=== PATIENT | male | born 1970 | race Caucasian/White ===

== ENCOUNTER 2021-05-27 16:28 | Inpatient (IN) ==
[2021-05-27] MEDS ORDERED: Isovue-370 500 ML BOTTLE IVP ONE (17:24)
[2021-05-27] MEDS ORDERED: 0.9 % Sodium Chloride 1,000 ML IVC ONE (17:24)
[2021-05-27 17:34] LABS: Basophils % 0.1 %; Eosinophils % 0.1 %; Hematocrit 40.1 % (37.5-50.1); Hemoglobin 14.1 g/dL (12.9-16.9); Immature Granulocytes % 0.5 % (0-4); Lymphocytes # 1.9 K/mcL (0.6-4.6); Lymphocytes % 11.9 %; Mean Corpuscular HGB Conc 35.2 g/dL (31.6-35.5); Mean Corpuscular Hemoglobin 29.6 pg (28.0-33.3); Mean Corpuscular Volume 84.2 fL (83.0-100.0); Mean Platelet Volume 8.6 fL (9.4-12.4); Monocytes # 1.5 K/mcL (0.0-1.3); Monocytes % 9.5 %; Neutrophils # 12.1 K/mcL (1.6-8.9); Platelet Count 371 K/mcL (140-400); Red Blood Count 4.76 M/mcL (4.19-5.50); Red Cell Distribution Width 13.1 % (11.5-14.5); Segmented Neutrophils % 77.9 %; White Blood Count 15.5 K/mcL (4.3-11.1)
[2021-05-27 17:54] LABS: Alanine Aminotransferase 11 Units/L (7-52); Albumin 3.6 g/dL (3.5-5.7); Albumin/Globulin Ratio 1.6 (1.1-2.2); Alkaline Phosphatase 55 Units/L (34-104); Aspartate Amino Transferase 13 Units/L (13-39); BUN/Creatinine Ratio 42 (6-26); Bilirubin,Direct 0.2 mg/dL (0.0-0.2); Bilirubin,Indirect 0.9 mg/dL (0.0-1.0); Bilirubin,Total 1.1 mg/dL (0.3-1.0); Blood Urea Nitrogen 19 mg/dL (6-20); Calcium 7.4 mg/dL (8.6-10.3); Carbon Dioxide 23 mEq/L (23-29); Chloride 105 mEq/L (98-107); Globulin 2.3 g/dL (2.4-3.5); Glucose 97 mg/dL (70-105); Lipase 9 Units/L (11-82); Magnesium 1.6 mg/dL (1.6-2.6); Osmolality,Calculated 290 (280-300); Potassium 3.4 mEq/L (3.5-5.1); Sodium 139 mEq/L (136-145); Total Protein 5.9 g/dL (6.4-8.9); eGFR For African Americans > 60 (> 60); eGFR For Non-African Americans > 60 (> 60)
[2021-05-27 19:36] LABS: Bilirubin,Urine Negative (Negative); Blood,Urine Negative (Negative); Clarity,Urine Clear (Clear); Color,Urine Light-Yellow (Yellow); Glucose,Urine (UA) Normal (Normal); Ketones,Urine Negative (Negative); Leukocyte Esterase,Urine Large (Negative); Mucus,Urine Few per lpf (None-Few); Nitrite,Urine Negative (Negative); Protein,Urine Trace mg/dL (Neg-Trace); Specific Gravity,Urine > 1.030 (1.010-1.025); Squamous Epithelial Cell,Urine Few per hpf (None-Few); Urobilinogen,Urine Normal (Normal); WBC,Urine TNTC per hpf (0-3)
[2021-05-27] MEDS ORDERED: Azithromycin 250 MG TABLET PO ONE (19:37)
[2021-05-27] MEDS ORDERED: cefTRIAXone 1,000 MG in Water for inj. (sterile) 10 ML IVP ONE (19:37)
[2021-05-27] MEDS ORDERED: Clindamycin 600 MG/50 ML 600 MG/50 ML IV.SOLN IVPB ONE (21:50)
[2021-05-27] MEDS ORDERED: Naloxone 0.4 MG/ML INJ IVP PRN (22:47)
[2021-05-27] MEDS ORDERED: Acetaminophen 325 MG TABLET PO PRN (22:47)
[2021-05-27] MEDS ORDERED: Melatonin 3 MG TABLET PO PRN (22:47)
[2021-05-27] MEDS ORDERED: Ondansetron 4 MG/2 ML VIAL IVP PRN (22:47)
[2021-05-27 22:55] LABS: Influenza A PCR Negative (Negative); Influenza B PCR Negative (Negative); Resp. Syncytial Virus PCR Negative (Negative)
[2021-05-27 22:56] LABS: SARS-CoV-2 by PCR (In House) Negative (Negative)
[2021-05-28] MEDS ORDERED: 0.9 % Sodium Chloride 1,000 ML IVC SCH (02:15)
[2021-05-28 02:25] LABS: Basophils % 0.1 %; Eosinophils % 0.1 %; Hematocrit 34.5 % (37.5-50.1); Immature Granulocytes % 0.3 % (0-4); Lymphocytes # 1.4 K/mcL (0.6-4.6); Lymphocytes % 10.9 %; Mean Corpuscular HGB Conc 33.3 g/dL (31.6-35.5); Mean Corpuscular Hemoglobin 28.7 pg (28.0-33.3); Mean Platelet Volume 8.5 fL (9.4-12.4); Monocytes # 1.2 K/mcL (0.0-1.3); Monocytes % 9.5 %; Neutrophils # 9.9 K/mcL (1.6-8.9); Platelet Count 279 K/mcL (140-400); Red Blood Count 4.01 M/mcL (4.19-5.50); Red Cell Distribution Width 13.1 % (11.5-14.5); Segmented Neutrophils % 79.1 %; White Blood Count 12.5 K/mcL (4.3-11.1)
[2021-05-28 02:27] LABS: Hemoglobin 11.5 g/dL (12.9-16.9)
[2021-05-28 02:41] LABS: Lactate Dehydrogenase 118 Units/L (140-271); Total Protein 5.9 g/dL (6.4-8.9)
[2021-05-28 02:42] LABS: BUN/Creatinine Ratio 26 (6-26); Blood Urea Nitrogen 18 mg/dL (6-20); Calcium 8.3 mg/dL (8.6-10.3); Carbon Dioxide 27 mEq/L (23-29); Chloride 101 mEq/L (98-107); Glucose 159 mg/dL (70-105); Magnesium 1.9 mg/dL (1.6-2.6); Osmolality,Calculated 289 (280-300); Phosphorous 3.3 mg/dL (2.7-4.5); Potassium 3.9 mEq/L (3.5-5.1); Sodium 137 mEq/L (136-145); eGFR For African Americans > 60 (> 60); eGFR For Non-African Americans > 60 (> 60)
[2021-05-28] MEDS: Vancomycin 1,250 MG/262.5 ML IV.SOLN IVPB SCH ×2 (02:45→15:20)
[2021-05-28] MEDS: Baclofen 10 MG TABLET PO SCH ×2 (02:53→21:00)
[2021-05-28] MEDS: *HR* Heparin 5,000 UNIT/ML VIAL SQ SCH ×3 (05:24→20:59)
[2021-05-28] MEDS: Piperacillin/Tazobactam 3.375 GM in 0.9 % Sodium Chloride Mini Bag 100 ML IVPB SCH ×3 (07:45→23:35)
[2021-05-28] MEDS ORDERED: Baclofen 10 MG TABLET PO ONE (12:57)
[2021-05-28 16:07] LABS: Total Protein,Pleural Fluid 5.1 g/dL
[2021-05-28 16:25] LABS: RBC,Pleural Fluid 4060000 RBC/mcL
[2021-05-28] MEDS: Latanoprost 2.5 ML BOTTLE BOTH EYES SCH (16:47)
[2021-05-28 16:59] LABS: Appearance of Pleural Fl Bloody (Clear)
[2021-05-28 17:50] LABS: Basophils,Pleural Fluid 0 %; Eosinophils,Pleural Fluid 0 %
[2021-05-29] MEDS: Vancomycin 1,250 MG/262.5 ML IV.SOLN IVPB SCH (03:28)
[2021-05-29] MEDS: *HR* Heparin 5,000 UNIT/ML VIAL SQ SCH ×3 (06:30→20:39)
[2021-05-29 09:04] LABS: Basophils % 0.3 %; Eosinophils % 0.2 %; Hematocrit 38.6 % (37.5-50.1); Immature Granulocytes % 0.5 % (0-4); Lymphocytes # 1.8 K/mcL (0.6-4.6); Lymphocytes % 18.4 %; Mean Corpuscular HGB Conc 33.7 g/dL (31.6-35.5); Mean Platelet Volume 8.6 fL (9.4-12.4); Monocytes # 1.1 K/mcL (0.0-1.3); Monocytes % 11.3 %; Neutrophils # 6.7 K/mcL (1.6-8.9); Platelet Count 323 K/mcL (140-400); Red Blood Count 4.49 M/mcL (4.19-5.50); Red Cell Distribution Width 13.1 % (11.5-14.5); Segmented Neutrophils % 69.3 %; White Blood Count 9.6 K/mcL (4.3-11.1)
[2021-05-29 09:25] LABS: BUN/Creatinine Ratio 14 (6-26); Blood Urea Nitrogen 9 mg/dL (6-20); Carbon Dioxide 29 mEq/L (23-29); Chloride 101 mEq/L (98-107); Glucose 112 mg/dL (70-105); Osmolality,Calculated 287 (280-300); Sodium 139 mEq/L (136-145); eGFR For African Americans > 60 (> 60); eGFR For Non-African Americans > 60 (> 60)
[2021-05-29] MEDS: Baclofen 10 MG TABLET PO SCH ×2 (09:46→20:38)
[2021-05-29] MEDS: Piperacillin/Tazobactam 3.375 GM in 0.9 % Sodium Chloride Mini Bag 100 ML IVPB SCH ×2 (09:47→17:18)
[2021-05-29] MEDS: Latanoprost 2.5 ML BOTTLE BOTH EYES SCH (18:44)
[2021-05-30] MEDS: Piperacillin/Tazobactam 3.375 GM in 0.9 % Sodium Chloride Mini Bag 100 ML IVPB SCH ×2 (00:31→09:08)
[2021-05-30 02:03] LABS: Basophils % 0.3 %; Eosinophils # 0.1 K/mcL (0.0-0.6); Hematocrit 35.6 % (37.5-50.1); Hemoglobin 11.7 g/dL (12.9-16.9); Immature Granulocytes % 0.5 % (0-4); Lymphocytes # 2.1 K/mcL (0.6-4.6); Lymphocytes % 20.4 %; Mean Corpuscular HGB Conc 32.9 g/dL (31.6-35.5); Mean Corpuscular Hemoglobin 28.7 pg (28.0-33.3); Mean Corpuscular Volume 87.5 fL (83.0-100.0); Mean Platelet Volume 8.3 fL (9.4-12.4); Monocytes # 1.1 K/mcL (0.0-1.3); Monocytes % 10.9 %; Platelet Count 275 K/mcL (140-400); Red Blood Count 4.07 M/mcL (4.19-5.50); Red Cell Distribution Width 13.2 % (11.5-14.5); Segmented Neutrophils % 66.9 %; White Blood Count 10.4 K/mcL (4.3-11.1)
[2021-05-30 02:21] LABS: BUN/Creatinine Ratio 28 (6-26); Blood Urea Nitrogen 21 mg/dL (6-20); Calcium 8.5 mg/dL (8.6-10.3); Carbon Dioxide 27 mEq/L (23-29); Chloride 103 mEq/L (98-107); Glucose 118 mg/dL (70-105); Osmolality,Calculated 288 (280-300); Sodium 137 mEq/L (136-145); eGFR For African Americans > 60 (> 60); eGFR For Non-African Americans > 60 (> 60)
[2021-05-30] MEDS: *HR* Heparin 5,000 UNIT/ML VIAL SQ SCH (05:15)
[2021-05-30 07:40] VITALS: BP 134/68; PULSE 65; TEMP 97.9; O2SAT 98
[2021-05-30] MEDS: Baclofen 10 MG TABLET PO SCH (09:09)
[2021-05-31 07:06] LABS: Fluid Source for Triglycerides PLEURAL FLUID
[2021-05-31 09:05] LABS: Triglycerides,Body Fluid 103 mg/dL
[2021-05-31 17:29] LABS: Fluid Source for Cholesterol PLEURAL FLUID
[2021-06-01 08:18] LABS: Cholesterol,Body Fluid 141 mg/dL
== END 2021-05-30 10:30 | disposition home or self-care (01) | DRG 871 ==
LOC: EMEROOARM 16:28 → 3BNU 16:28 → SUATTDRO 22:07 → 3BNU 23:07
PROVIDERS: ADMIT Internal Medicine; ATTEND Internal Medicine

== ENCOUNTER 2021-07-10 07:40 | Inpatient (IN) ==
[2021-07-10] MEDS ORDERED: CeFAZolin Syr 2,000MG/20 ML 2,000 MG/20 ML SYRINGE IVPB ONE (08:04)
[2021-07-10] MEDS ORDERED: Acetaminophen IV 1,000 MG/100 ML BAG IVPB ONE (08:09)
[2021-07-10] MEDS ORDERED: *HR* Propofol 200 MG/20 ML VIAL IVP ONE (08:12)
[2021-07-10] MEDS ORDERED: Ringers Solution, Lactated 1,000 ML IVC SCH (08:15)
[2021-07-10] MEDS ORDERED: Lidocaine -MPF 2% 5 ML VIAL ONE (09:34)
[2021-07-10] MEDS ORDERED: Ondansetron 4 MG/2 ML VIAL ONE (09:34)
[2021-07-10] MEDS ORDERED: *HR* Rocuronium Bromide 50 MG/5 ML VIAL ONE (09:34)
[2021-07-10] MEDS ORDERED: *HR* FentaNYL (PF) 100 MCG/2 ML VIAL ONE (09:49)
[2021-07-10] MEDS ORDERED: Ketorolac 30 MG/ML VIAL ONE (09:54)
[2021-07-10] MEDS ORDERED: Doxycycline 800 MG, Syringe LUER-LOK 1 EACH in 0.9 % Sodium Chloride 50 ML IX ONE (10:00)
[2021-07-10] MEDS: *HR* FentaNYL (PF) 100 MCG/2 ML VIAL IVP PRN ×4 (10:38→10:59)
[2021-07-10] MEDS ORDERED: Ondansetron 4 MG/2 ML VIAL IVP PRN (12:39)
[2021-07-10] MEDS: 0.9 % Sodium Chloride 1,000 ML IVC SCH (13:09)
[2021-07-10] MEDS: Ipratropium/Albuterol Neb 3 ML IH SCH ×4 (14:08→23:36)
[2021-07-10] MEDS: *HR* HYDROcodone/Acet 5/325 mg TABLET PO PRN ×2 (14:35→20:22)
[2021-07-10] MEDS ORDERED: Latanoprost 2.5 ML BOTTLE BOTH EYES SCH (18:00)
[2021-07-10] MEDS: Baclofen 10 MG TABLET PO SCH (20:23)
[2021-07-10] MEDS: Famotidine 20 MG TABLET PO SCH (20:23)
[2021-07-10] MEDS: Sennosides/Docusate Sodium TABLET PO SCH (20:23)
[2021-07-10] MEDS: Sulfamethoxazole/Trimeth DS 1 EACH TABLET PO SCH (20:23)
[2021-07-11] MEDS: 0.9 % Sodium Chloride 1,000 ML IVC SCH (02:01)
[2021-07-11] MEDS: Ipratropium/Albuterol Neb 3 ML IH SCH ×5 (03:34→21:00)
[2021-07-11] MEDS: Sennosides/Docusate Sodium TABLET PO SCH ×2 (09:07→20:01)
[2021-07-11] MEDS: Famotidine 20 MG TABLET PO SCH ×2 (09:08→20:01)
[2021-07-11] MEDS: Sulfamethoxazole/Trimeth DS 1 EACH TABLET PO SCH (09:08)
[2021-07-11] MEDS: Baclofen 10 MG TABLET PO SCH ×2 (09:08→20:01)
[2021-07-11 10:05] LABS: Hematocrit 39.1 % (37.5-50.1); Hemoglobin 12.9 g/dL (12.9-16.9); Mean Corpuscular Hemoglobin 28.1 pg (28.0-33.3); Mean Corpuscular Volume 85.2 fL (83.0-100.0); Mean Platelet Volume 8.3 fL (9.4-12.4); Platelet Count 388 K/mcL (140-400); Red Blood Count 4.59 M/mcL (4.19-5.50); Red Cell Distribution Width 13.2 % (11.5-14.5); White Blood Count 9.5 K/mcL (4.3-11.1)
[2021-07-11 10:39] LABS: Blood Urea Nitrogen 8 mg/dL (6-20); Calcium 8.6 mg/dL (8.6-10.3); Carbon Dioxide 26 mEq/L (23-29); Chloride 103 mEq/L (98-107); Glucose 145 mg/dL (70-105); Magnesium 1.9 mg/dL (1.6-2.6); Osmolality,Calculated 285 (280-300); Potassium 3.5 mEq/L (3.5-5.1); Sodium 137 mEq/L (136-145)
[2021-07-11] MEDS: Amoxicillin/Clavulanate 500 MG TABLET PO SCH ×2 (11:31→20:01)
[2021-07-11 11:33] LABS: BUN/Creatinine Ratio 11 (6-26); eGFR For African Americans > 60 (> 60); eGFR For Non-African Americans > 60 (> 60)
[2021-07-11] MEDS: Latanoprost 2.5 ML BOTTLE BOTH EYES SCH (22:09)
[2021-07-12] MEDS: Ipratropium/Albuterol Neb 3 ML IH SCH ×4 (04:05→20:43)
[2021-07-12] MEDS: Famotidine 20 MG TABLET PO SCH ×2 (08:12→20:23)
[2021-07-12] MEDS: Baclofen 10 MG TABLET PO SCH ×2 (08:13→20:23)
[2021-07-12] MEDS: Sennosides/Docusate Sodium TABLET PO SCH ×2 (08:13→20:24)
[2021-07-12] MEDS: Amoxicillin/Clavulanate 500 MG TABLET PO SCH ×3 (08:13→16:56)
[2021-07-12] MEDS: Latanoprost 2.5 ML BOTTLE BOTH EYES SCH (20:31)
[2021-07-13] MEDS: Ipratropium/Albuterol Neb 3 ML IH SCH ×4 (04:04→20:36)
[2021-07-13 07:37] LABS: Basophils % 0.3 %; Eosinophils # 0.1 K/mcL (0.0-0.6); Eosinophils % 1.6 %; Hematocrit 41.3 % (37.5-50.1); Hemoglobin 13.2 g/dL (12.9-16.9); Immature Granulocytes % 0.3 % (0-4); Lymphocytes # 1.2 K/mcL (0.6-4.6); Lymphocytes % 14.4 %; Mean Corpuscular Hemoglobin 27.8 pg (28.0-33.3); Mean Corpuscular Volume 86.9 fL (83.0-100.0); Mean Platelet Volume 8.2 fL (9.4-12.4); Monocytes # 0.6 K/mcL (0.0-1.3); Monocytes % 7.1 %; Neutrophils # 6.6 K/mcL (1.6-8.9); Platelet Count 388 K/mcL (140-400); Red Blood Count 4.75 M/mcL (4.19-5.50); Red Cell Distribution Width 13.2 % (11.5-14.5); Segmented Neutrophils % 76.3 %; White Blood Count 8.6 K/mcL (4.3-11.1)
[2021-07-13 08:00] LABS: BUN/Creatinine Ratio 19 (6-26); Blood Urea Nitrogen 13 mg/dL (6-20); Calcium 9.3 mg/dL (8.6-10.3); Carbon Dioxide 29 mEq/L (23-29); Chloride 101 mEq/L (98-107); Glucose 78 mg/dL (70-105); Osmolality,Calculated 283 (280-300); Potassium 4.7 mEq/L (3.5-5.1); Sodium 137 mEq/L (136-145); eGFR For African Americans > 60 (> 60); eGFR For Non-African Americans > 60 (> 60)
[2021-07-13] MEDS: Amoxicillin/Clavulanate 500 MG TABLET PO SCH ×3 (09:38→17:11)
[2021-07-13] MEDS: Baclofen 10 MG TABLET PO SCH ×2 (09:38→20:58)
[2021-07-13] MEDS: Sennosides/Docusate Sodium TABLET PO SCH ×2 (09:38→20:59)
[2021-07-13] MEDS: Famotidine 20 MG TABLET PO SCH ×2 (09:39→21:00)
[2021-07-13] MEDS: Latanoprost 2.5 ML BOTTLE BOTH EYES SCH (21:02)
[2021-07-14] MEDS: Ipratropium/Albuterol Neb 3 ML IH SCH ×3 (04:33→16:02)
[2021-07-14] MEDS: Baclofen 10 MG TABLET PO SCH (09:33)
[2021-07-14] MEDS: Amoxicillin/Clavulanate 500 MG TABLET PO SCH ×2 (09:33→12:31)
[2021-07-14] MEDS: Sennosides/Docusate Sodium TABLET PO SCH (09:34)
[2021-07-14] MEDS: Famotidine 20 MG TABLET PO SCH (09:34)
[2021-07-14 15:42] VITALS: BP 130/79; PULSE 85; TEMP 98.5
[2021-07-14 16:20] VITALS: O2SAT 97
== END 2021-07-14 16:50 | disposition home or self-care (01) | DRG 163 ==
LOC: SAMDAY 07:40 → 2NNU 12:21
PROVIDERS: ADMIT Thoracic Surgery (Cardiothoracic Vascular Surgery); ATTEND Thoracic Surgery (Cardiothoracic Vascular Surgery)